=== PATIENT | male | born 1930 | race Caucasian/White ===

== ENCOUNTER → 2017-02-07 | Outpatient (CLI) | payer OTHER ==
[~2017-02-07] VITALS: Ht 167.6 cm; Wt 81.2 kg
[~2017-02-07] MED LIST: CALCIUM 500 +1 EAC5 PO; CARDIZEM CD180 MG PO; CRESTOR10 MG PO; ELIQUIS5 MG PO; FISH OIL 1,2001 EAC4 PO; FLOMAX0.4 MG PO; LEVOTHYROXIN0.088 MG PO; MONOPRIL20 MG PO; TRAMADOL 50 MG50 MG PO; TRAZODONE HCL50 MG PO; VITAMIN D3400 UNIT PO; [UNRECOGNIZED DRUG - OTHER]
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
[2017-02-07 11:51] VITALS: BP 127/90
== END | disposition home or self-care (01) ==
LOC: PAIN 07:01
DX: M54.16 Radiculopathy, lumbar region (principal); M48.06 Spinal stenosis, lumbar region; M17.9 Osteoarthritis of knee, unspecified; I25.10 Atherosclerotic heart disease of native coronary artery without angina pectoris; I12.9 Hypertensive chronic kidney disease with stage 1 through stage 4 chronic kidney disease, or unspecified chronic kidney disease; N18.9 Chronic kidney disease, unspecified; I48.91 Unspecified atrial fibrillation; E03.9 Hypothyroidism, unspecified

== ENCOUNTER → 2017-03-11 | Outpatient (CLI) | payer OTHER ==
[~2017-03-11] VITALS: Ht 167.6 cm; Wt 80.5 kg
--- NOTE | ~2017-03-11 | HPC ---
[facility] [address] [employer] [place] [address] PAIN MANAGEMENT CONSULTATION Name: CROW LOMELI Room #: REG [facility]#: [id number] Admission: 03/11/17 Attend Phys: Reynaldo Aranda MD Discharge: Date of : [birth year] Report #: [id number] THIS REPORT FOR: //name// CC: MARIANO Aranda DATE OF SERVICE: 03/11/2017 Followup visit for low back pain with radiculopathy. The patient returns to pain clinic today, continues to have pain that radiates in the T12-L1 distribution. Pain down the leg is at least 50% better. We discussed options for this 86-year-old. He is not a surgical candidate. I also had to discuss the expectations with him. He says that he does pretty well until he has been up on his feet for 2 hours! At that time, he begins to experience pain in his back and radiating into his groin. He says the pain increases also when he has a rotational movement around the spine, it is generally in the area of the upper thoracic dermatome as above area where he has had an X-STOP placed for spinal stenosis. PHYSICAL EXAMINATION: He is a pleasant 86-year-old. He moves from sitting to standing position independently. He is not a fall risk. He does not use a cane. His blood pressure is 131/82, heart rate 80, respirations 18. Range of motion of the lumbar spine is quite good for age. He does have some increasing pain with right rotational movements, which cause radicular symptoms that begin in his back, radiates through T12-L1, L1-L2 and into the groin. Straight leg raising is negative. He has no pain with internal and external rotation of his hip. IMPRESSION: Severe low back pain with spondylosis. He has some right lumbar curvature with grade 1 anterolisthesis at L3 and L4. There is also noted to be bulging at the L2-L3 disk and moderate bulging of the T12-L1 disk. RECOMMENDATION: An epidural steroid injection T12-L1 under fluoroscopic guidance. After informed consent, the patient was taken to fluoroscopic suite, placed prone, skin prepped with ChloraPrep. Skin anesthetized over T12-L1. I used a transforaminal approach. This was chosen due to thickening of the ligamentum flavum. Using triplanar fluoroscopic views, a needle was advanced easily into the neural foramen. A 0.25 mL of Omnipaque was injected with an excellent epidurogram along the lateral recess on the right side noted extending into the thoracic dermatome as well as along the L1-L2. It was then followed by [address] [address] PAIN MANAGEMENT CONSULTATION Name: CROW LOMELI Room #: REG CLLicha Morris#: [id number] Admission: 03/11/17 Attend Phys: Reynaldo Aranda MD Discharge: Date of : [birth year]/06[birth year] Report #: [id number] 0.5% lidocaine mixed with 80 mg of triamcinolone. He tolerated the procedure well. Pain was down to 0 at discharge and we will fall him back in about a month or two. By: [id number] Reynaldo Aranda MD /nt
[2017-03-11 10:11] VITALS: BP 131/82
== END ==
LOC: PAIN 07:42
DX: M47.27 Other spondylosis with radiculopathy, lumbosacral region (principal); E11.9 Type 2 diabetes mellitus without complications

== ENCOUNTER → 2017-08-19 | Outpatient (CLI) | payer OTHER ==
[~2017-08-19] VITALS: Ht 165.1 cm; Wt 84.7 kg
--- NOTE | ~2017-08-19 | HPC ---
[facility] [place] [address] PAIN MANAGEMENT CONSULTATION Name: CROW LOMELI [facility] [id number] Admission: 08/19/17 Attend Phys: Reynaldo Aranda MD Discharge: Date of : [birth year] Report #: [id number] THIS REPORT FOR: //name// CC: Pablo Aranda DATE OF SERVICE: 08/19/2017 CHIEF COMPLAINT: Tibial pain on the right. HISTORY OF PRESENT ILLNESS: The patient has been seeing here for lumbar radiculopathy. When he was seen here previously, he had severe pain in his back radiating into his hip and he also had pain in the T12-L1 distribution. He responded beautifully to an epidural injection. He has very little pain into his back. He has very little pain radiating into his groin, the areas where he complained of it earlier. Since we have treated those pains effectively over the last several months, he has developed new pain. This pain begins just about the tibial plateau and then radiates into the tibia. It is worse with weightbearing. He has very little pain when he is sitting or when he is able to lie down with his knees slightly flexed. MEDICATIONS: Unchanged, Crestor, Ecotrin, fish oil, terazosin, diclofenac gel and vitamins. He has hydrocodone 5/325 p.r.n. for pain. PHYSICAL EXAMINATION: VITAL SIGNS: His pain was a 6 with standing or walking, is comfortable while sitting. His blood pressure is 109/57, heart rate is 85, respirations are 22 and BMI is 31.1. EXTREMITIES: Examination of the area just below the knee in the area of the patella and along the tibial plateau is positive for some local discomfort. When the leg is flexed, he has no pain. In the seated position when the straight leg raising is performed passively, this reproduces his pain. When he stands or walks, he has antalgic gait, favoring his right leg where he has pain about the knee joint, radiating down towards. IMPRESSION: I think his pain is generated in the knee. When his knee is flexed, it is not painful. When he has to stand up, the biomechanics would suggest that pressure is exerted down along the tibia if he straightens his leg. This reproduces the pain. RECOMMENDATIONS: 1. Plain film x-rays of the right knee to evaluate. 2. I recommended an injection of the knee with triamcinolone. This might be helpful for him and might also help us with diagnosis. He was not so certain that it was his knee because his knee does not seem to hurt, just below the knee. He may be correct, but I think a knee injection might be a reasonable way [address] [address] PAIN MANAGEMENT CONSULTATION Name: CROW LOMELI Room #: REG CLI Alexandra#: [id number] Admission: 08/19/17 Attend Phys: Reyanldo Aranda MD Discharge: Date of : 12/06/[birth year] Report #: [id number] to see if we can provide simplistic relief. He is not a good candidate for surgery. I feel quite strong that this does not represent a radicular pain syndrome. Followup visit planned when we can inject his knee in another week or two and to review the x-rays. By: [id number] Reynaldo Aranda MD /nt
[2017-08-19 13:54] VITALS: BP 109/57
== END | disposition home or self-care (01) ==
LOC: PAIN 07:00
DX: M79.661 Pain in right lower leg (principal); Z87.891 Personal history of nicotine dependence

== ENCOUNTER → 2017-08-21 | Outpatient (CLI) | payer OTHER ==
[~2017-08-21] VITALS: Ht 165.1 cm; Wt 84.4 kg
--- NOTE | ~2017-08-21 | HPC ---
[facility] [place] [address] PAIN MANAGEMENT CONSULTATION Name: CROW LOMELI Room #: [facility] HospitalNicole[facility]#: [id number] Admission: 08/21/17 Attend Phys: Reynaldo Aranda MD Discharge: Date of : [birth year]/06/[birth year] Report #: [id number] THIS REPORT FOR: //name// CC: Pablo Aranda DATE OF SERVICE: 08/21/2017 Followup visit for right knee pain with radiation into the anterior lower leg and foot. The patient returns to pain clinic today and I have reviewed his x-rays, which show that there is indeed degenerative change of the right knee with narrowing of the joint space and bilateral chondrocalcinosis. There is no evidence of fracture. I have suggested a diagnostic and therapeutic injection at the knee and he is here today to proceed. He does complain of a fair amount of foot pain. He may have a second pain generator with arthritis or neuropathy. Lets see how he does today with this injection, with the possibility that some of his foot pain is referred, and I would like to see him back in the pain clinic in about a month or so. IMPRESSION: Osteoarthritis, right knee. PROCEDURE: Right knee injection under fluoroscopic guidance. Skin was prepped with ChloraPrep. Skin was anesthetized medially. A 25-gauge needle was gently advanced into the joint space. I injected a 0.25 mL of Omnipaque to demonstrate an excellent arthrogram. This was then followed by 5 mL of 0.5% bupivacaine and 40 mg of triamcinolone. He was discharged after a 30-minute stay in recovery room, was able to bear weight without pain, good early diagnostic finding, but we will see how he is doing in a week or two. By: [id number] Reynaldo Aranda MD /nt
[2017-08-21 13:54] VITALS: BP 104/58
== END | disposition home or self-care (01) ==
LOC: PAIN 07:09
DX: M17.11 Unilateral primary osteoarthritis, right knee (principal); M11.261 Other chondrocalcinosis, right knee; Z87.891 Personal history of nicotine dependence; Z98.890 Other specified postprocedural states

== ENCOUNTER → 2018-09-02 | Outpatient (CLI) | payer OTHER ==
[~2018-09-02] MED LIST changes: +BUTALB-APAP-CA1 EACH PO
== END ==
LOC: HYPER 06:48
DX: S81.802A Unspecified open wound, left lower leg, initial encounter (principal); C61 Malignant neoplasm of prostate; E78.5 Hyperlipidemia, unspecified; E07.89 Other specified disorders of thyroid; E66.9 Obesity, unspecified; I82.90 Acute embolism and thrombosis of unspecified vein; I13.0 Hypertensive heart and chronic kidney disease with heart failure and stage 1 through stage 4 chronic kidney disease, or unspecified chronic kidney disease; N18.3 Chronic kidney disease, stage 3 (moderate); I50.9 Heart failure, unspecified; I25.10 Atherosclerotic heart disease of native coronary artery without angina pectoris; I25.2 Old myocardial infarction; I73.9 Peripheral vascular disease, unspecified; G89.29 Other chronic pain; G56.00 Carpal tunnel syndrome, unspecified upper limb; J44.9 Chronic obstructive pulmonary disease, unspecified; M81.0 Age-related osteoporosis without current pathological fracture; M46.92 Unspecified inflammatory spondylopathy, cervical region; M06.9 Rheumatoid arthritis, unspecified; M12.869 Other specific arthropathies, not elsewhere classified, unspecified knee; Z98.49 Cataract extraction status, unspecified eye; Z95.828 Presence of other vascular implants and grafts; Z68.27 Body mass index [BMI] 27.0-27.9, adult; Z87.891 Personal history of nicotine dependence; X58.XXXA Exposure to other specified factors, initial encounter; Y93.89 Activity, other specified; Y92.89 Other specified places as the place of occurrence of the external cause; Y99.8 Other external cause status